=== PATIENT | male | born 1985 | race Caucasian/White ===

== ENCOUNTER 2018-05-03 00:28 | Emergency (ER) | payer SELFPAY ==
[~2018-05-03] VITALS: Ht 185.4 cm; Wt 77.1 kg
[~2018-05-03 00:28] MED LIST: LISD70CA; OLAN10TA3
[2018-05-03 00:30] VITALS: BP 138/84
[2018-05-03] MEDS ORDERED: LIDOCAINE /MPF 1% VIAL 5 ML VIAL ONE (01:56)
[2018-05-03] MEDS ORDERED: CEFTRIAXONE 1 G VIAL ONE (01:56)
[2018-05-03] MEDS ORDERED: CEFTRIAXONE 1 G VIAL IM ONE (02:00)
== END 2018-05-03 02:07 | disposition home or self-care (01) ==
LOC: ER 00:32
DX: S50.862A Insect bite (nonvenomous) of left forearm, initial encounter (principal); L03.114 Cellulitis of left upper limb; J45.909 Unspecified asthma, uncomplicated; Z87.01 Personal history of pneumonia (recurrent); Z98.890 Other specified postprocedural states; W57.XXXA Bitten or stung by nonvenomous insect and other nonvenomous arthropods, initial encounter; Y93.89 Activity, other specified; Y92.89 Other specified places as the place of occurrence of the external cause; Y99.8 Other external cause status
CPT/HCPCS: A4606; J0696; J3490; Z7610

== ENCOUNTER 2024-05-13 11:41 | Emergency (ER) | payer MEDICAID ==
[~2024-05-13] VITALS: Ht 185.4 cm; Wt 77.1 kg
[2024-05-13 12:38] VITALS: BP 125/80; TEMP 98.4; O2SAT 100
== END 2024-05-13 12:38 | disposition home or self-care (01) ==
LOC: ER 11:51
DX: S29.8XXA Other specified injuries of thorax, initial encounter (principal); J45.909 Unspecified asthma, uncomplicated; J18.9 Pneumonia, unspecified organism; Z87.09 Personal history of other diseases of the respiratory system; W05.1XXA Fall from non-moving nonmotorized scooter, initial encounter; Y93.89 Activity, other specified; Y92.488 Other paved roadways as the place of occurrence of the external cause; Y99.8 Other external cause status
CPT/HCPCS: 71045-TC

== ENCOUNTER 2024-05-20 11:08 | Emergency (ER) | payer MEDICAID ==
[~2024-05-20] VITALS: Ht 185.4 cm; Wt 77.1 kg
[2024-05-20 11:14] VITALS: BP 94/77; TEMP 97.9; O2SAT 95
[2024-05-20] MEDS ORDERED: IBUP-1957 PO (12:21)
[2024-05-20] MEDS ORDERED: IBUPROFEN 600 MG TABLET ONE (12:23)
[2024-05-20] MEDS: IBUPROFEN 600 MG TABLET PO ONE (12:24)
== END 2024-05-20 12:33 | disposition home or self-care (01) ==
LOC: ER 11:18
DX: S62.367A Nondisplaced fracture of neck of fifth metacarpal bone, left hand, initial encounter for closed fracture (principal); J45.909 Unspecified asthma, uncomplicated; J18.9 Pneumonia, unspecified organism; Z87.09 Personal history of other diseases of the respiratory system; W18.39XA Other fall on same level, initial encounter; Y93.K1 Activity, walking an animal; Y92.89 Other specified places as the place of occurrence of the external cause; Y99.8 Other external cause status
CPT/HCPCS: 73130-TC